=== PATIENT | male | born 1970 | race African-American/Black ===

== ENCOUNTER 2017-09-06 11:33 | Inpatient (IN) | payer OTHER, MEDICAID ==
[~2017-09-06] VITALS: Ht 188 cm; Wt 124.7 kg
[~2017-09-06 11:33] MED LIST: ACET-283 PO; AMLO10TA4; ATEN-175; CEPH250C2 PO; COCO1000 PO; FURO-151; HERBAL LAXATIVE; POTA10TA15 PO; PSYL1POW MC; SIMV10TA6 PO; VALS80TA2 PO; [UNRECOGNIZED DRUG - CODE] PO; [UNRECOGNIZED DRUG - OTHER]
[2017-09-06 12:55] LABS: BASOPHILS % 0.5 % (0.0-2.0); HEMATOCRIT. 46.1 % (42.0-52.0); HEMOGLOBIN. 15.4 g/dL (14.0-18.0); LYMPHOCYTES % 8.1 % (20.0-50.0); MEAN CORPUSCULAR HEMOGLOBIN 28.9 pg (28.0-32.0); MEAN CORPUSCULAR VOLUME 86.4 fL (80.0-94.0); MEAN PLATELET VOLUME 8.3 fl (7.4-10.4); MONOCYTES % 8.9 % (2.0-8.0); NEUTROPHILS % 80.5 % (40.0-76.0); PLATELET 162 x1000/uL (130-400); RED BLOOD CELL COUNT 5.34 mill/uL (4.7-6.1); RED CELL DISTRIBUTION WIDTH 14.5 % (11.6-14.6)
[2017-09-06 13:03] LABS: INR 2.4; PROTHROMBIN TIME 24.8 sec (9.4-11.6)
[2017-09-06 13:20] LABS: CARBON DIOXIDE 30 mEq/L (21-32); CHLORIDE 104 mEq/L (98-107); TROPONIN I < 0.02 ng/mL (0.00-0.04)
[2017-09-06] MEDS ORDERED: ACETAMINOPHEN WITH CODEINE 300/30MG TABLET PO ONE (14:45)
[2017-09-06] MEDS ORDERED: KETOROLAC 30MG/ML VIAL IV ONE (14:45)
[2017-09-06] MEDS ORDERED: ENOXAPARIN 100MG/ML SYR SUBCUT ONE ×2 (17:30→18:15)
[2017-09-06] MEDS ORDERED: OXYCODONE HCL/ACETAMINOPHEN 5/325MG TABLET PO ONE (17:45)
[2017-09-06] MEDS ORDERED: MAGNESIUM/ALUMINUM HYDROXIDE/SIMETHICONE 30ML UDC PO PRN (22:30)
[2017-09-06] MEDS ORDERED: DIPHENHYDRAMINE 50MG/ML VIAL IV PRN (22:30)
[2017-09-06] MEDS ORDERED: CLONIDINE 0.1MG TABLET PO PRN (22:30)
[2017-09-06] MEDS ORDERED: NA PHOS,M-B/NA PHOS,DI-BA ENEMA 118ML PR PRN (22:30)
[2017-09-06] MEDS ORDERED: ONDANSETRON HCL 4MG/2ML VIAL IV PRN (22:30)
[2017-09-06] MEDS ORDERED: GUAIFENESIN 200MG/10ML SUGAR FREE UDC PO PRN (22:30)
[2017-09-06] MEDS ORDERED: LORAZEPAM 2MG/ML CPJ IV PRN (22:30)
[2017-09-06] MEDS ORDERED: IPRATROPIUM/ALBUTEROL 0.5-3(2.5)MG/3ML NEB INH PRN (22:30)
[2017-09-06] MEDS ORDERED: ACETAMINOPHEN 325MG TABLET PO PRN (22:30)
[2017-09-06] MEDS ORDERED: LORAZEPAM 0.5MG TABLET PO PRN (23:15)
[2017-09-06 23:23] LABS: CHLORIDE 106 mEq/L (98-107)
[2017-09-06 23:29] LABS: CARBON DIOXIDE 29 mEq/L (21-32)
[2017-09-07] MEDS: HYDROCODONE/ACETAMINOPHEN 10/325MG TABLET PO PRN ×3 (00:25→10:02)
[2017-09-07 05:12] LABS: BASOPHILS % 0.5 % (0.0-2.0); EOSINOPHILS % 3.5 % (0.0-5.0); HEMATOCRIT. 43.5 % (42.0-52.0); HEMOGLOBIN. 14.4 g/dL (14.0-18.0); LYMPHOCYTES % 22.6 % (20.0-50.0); MEAN CORPUSCULAR HEMOGLOBIN 28.4 pg (28.0-32.0); MEAN CORPUSCULAR VOLUME 86.1 fL (80.0-94.0); MEAN PLATELET VOLUME 8.6 fl (7.4-10.4); MONOCYTES % 10.7 % (2.0-8.0); NEUTROPHILS % 62.7 % (40.0-76.0); PLATELET 171 x1000/uL (130-400); RED BLOOD CELL COUNT 5.05 mill/uL (4.7-6.1); RED CELL DISTRIBUTION WIDTH 14.3 % (11.6-14.6)
[2017-09-07 05:53] LABS: CHLORIDE 106 mEq/L (98-107)
[2017-09-07 06:56] LABS: CARBON DIOXIDE 24 mEq/L (21-32); HDL CHOLESTEROL 46 mg/dL (40-59); LDL CHOLESTEROL 49 mg/dL (5-100); T4 FREE 1.13 ng/dL (0.76-1.46)
[2017-09-07 12:00] VITALS: BP 144/88
[2017-09-07] MEDS ORDERED: DEXT 5%/0.45% NACL 1000ML 1,000 ML IV ONE (13:30)
[2017-09-07] MEDS ORDERED: LORAZEPAM 2MG/ML CPJ IV PRN (13:30)
[2017-09-07] MEDS ORDERED: THIAMINE HCL 100MG TABLET PO SCH (13:30)
[2017-09-07] MEDS: OXYCODONE HCL/ACETAMINOPHEN 5/325MG TABLET PO PRN ×3 (14:18→22:03)
[2017-09-07] MEDS ORDERED: IOHEXOL-350 100 ML BOTTLE ONE (15:38)
[2017-09-07 16:00] VITALS: BP 134/83
[2017-09-07 16:40] VITALS: BP 136/93
[2017-09-07] MEDS: WARFARIN SODIUM 4MG TABLET PO SCH (18:15)
[2017-09-07 20:00] VITALS: BP 132/94
[2017-09-07 22:17] LABS: CREATINE KINASE 163 IU/L (39-308); CREATINE KINASE MB FRACTION 0.7 ng/mL (0.5-3.6); TROPONIN I < 0.02 ng/mL (0.00-0.04)
[2017-09-08] VITALS: BP 117/76
[2017-09-08] MEDS: OXYCODONE HCL/ACETAMINOPHEN 5/325MG TABLET PO PRN ×5 (02:48→21:05)
[2017-09-08 04:00] VITALS: BP 134/71
[2017-09-08 06:34] LABS: INR 2.9; PROTHROMBIN TIME 30.6 sec (9.4-11.6)
[2017-09-08 07:32] VITALS: BP 132/82
[2017-09-08 08:29] LABS: CREATINE KINASE MB FRACTION 0.7 ng/mL (0.5-3.6)
[2017-09-08] MEDS: MULTIVITAMINS,THER W-MINERALS TABLET PO SCH (08:44)
[2017-09-08] MEDS: THIAMINE HCL 100MG TABLET PO SCH (08:45)
[2017-09-08] MEDS: FOLIC ACID 1MG TABLET PO SCH (08:45)
[2017-09-08 11:35] VITALS: BP 126/76
[2017-09-08 16:28] VITALS: BP 128/87
[2017-09-08] MEDS: WARFARIN SODIUM 4MG TABLET PO SCH (16:33)
[2017-09-08 20:00] VITALS: BP 138/81
[2017-09-09] VITALS (7 sets, daily range): BP systolic 132–164; BP diastolic 83–96
[2017-09-09] MEDS: OXYCODONE HCL/ACETAMINOPHEN 5/325MG TABLET PO PRN ×5 (01:02→20:29)
[2017-09-09] MEDS: DOCUSATE SODIUM 100MG CAPSULE PO PRN ×2 (05:27→20:29)
[2017-09-09 06:37] LABS: INR 2.5; PROTHROMBIN TIME 26.1 sec (9.4-11.6)
[2017-09-09] MEDS: THIAMINE HCL 100MG TABLET PO SCH (08:45)
[2017-09-09] MEDS: MULTIVITAMINS,THER W-MINERALS TABLET PO SCH (08:45)
[2017-09-09] MEDS: FOLIC ACID 1MG TABLET PO SCH (08:45)
[2017-09-09] MEDS ORDERED: HYDROCODONE/ACETAMINOPHEN 10/325MG TABLET PO PRN (09:15)
[2017-09-09] MEDS ORDERED: HYDROCODONE/ACETAMINOPHEN 5/325MG TABLET PO PRN (09:15)
[2017-09-09] MEDS: WARFARIN SODIUM 4MG TABLET PO SCH (17:55)
[2017-09-10 00:02] VITALS: BP 131/77
[2017-09-10] MEDS: OXYCODONE HCL/ACETAMINOPHEN 5/325MG TABLET PO PRN ×3 (00:10→09:24)
[2017-09-10 04:00] VITALS: BP 132/87
[2017-09-10 08:00] VITALS: BP 140/80
[2017-09-10] MEDS: THIAMINE HCL 100MG TABLET PO SCH (08:27)
[2017-09-10] MEDS: FOLIC ACID 1MG TABLET PO SCH (08:27)
[2017-09-10] MEDS: MULTIVITAMINS,THER W-MINERALS TABLET PO SCH (08:27)
[2017-09-10 12:00] VITALS: BP 124/70
== END 2017-09-10 14:50 | disposition home or self-care (01) | DRG 342 ==
LOC: ER 11:35 → 8WST 16:25 → ENRESERV 09-07 08:34
PROVIDERS: ADMIT Internal Medicine; ATTEND Internal Medicine
PROC: B5181ZA Fluoroscopy of Superior Vena Cava using Low Osmolar Contrast, Guidance (ICD-10-PCS; principal; 2017-09-07)
PROC: 02HV33Z Insertion of Infusion Device into Superior Vena Cava, Percutaneous Approach (ICD-10-PCS; 2017-09-07)
PROC: B548ZZA Ultrasonography of Superior Vena Cava, Guidance (ICD-10-PCS; 2017-09-07)
DX: S82.402A Unspecified fracture of shaft of left fibula, initial encounter for closed fracture (principal); G93.41 Metabolic encephalopathy; D68.59 Other primary thrombophilia; F20.9 Schizophrenia, unspecified; I69.354 Hemiplegia and hemiparesis following cerebral infarction affecting left non-dominant side; E86.0 Dehydration; S82.66XA Nondisplaced fracture of lateral malleolus of unspecified fibula, initial encounter for closed fracture; W18.30XA Fall on same level, unspecified, initial encounter; R55 Syncope and collapse; K21.9 Gastro-esophageal reflux disease without esophagitis; D17.9 Benign lipomatous neoplasm, unspecified; F10.10 Alcohol abuse, uncomplicated; I10 Essential (primary) hypertension; E78.5 Hyperlipidemia, unspecified; Y93.01 Activity, walking, marching and hiking; Z79.899 Other long term (current) drug therapy; Z83.2 Family history of diseases of the blood and blood-forming organs and certain disorders involving the immune mechanism; Y93.89 Activity, other specified; Y92.89 Other specified places as the place of occurrence of the external cause; Y99.8 Other external cause status; Z79.01 Long term (current) use of anticoagulants; Z88.5 Allergy status to narcotic agent; Z88.8 Allergy status to other drugs, medicaments and biological substances; Z79.1 Long term (current) use of non-steroidal anti-inflammatories (NSAID); Z86.718 Personal history of other venous thrombosis and embolism; Z86.711 Personal history of pulmonary embolism
CPT/HCPCS: 36415; 36569; 71045; 71275; 73610; 76937; 77001; 80048; 80053; 80061; 82550; 82553; 83036; 83880; 84439; 84443; 84484; 85025; 85379; 85610; 93005; 93306; 93970; 99285; C1725; J1650; J1885; Q9967

== ENCOUNTER 2018-03-01 17:15 | Emergency (ER) | payer OTHER ==
[~2018-03-01] VITALS: Ht 190.5 cm; Wt 134.6 kg
[~2018-03-01 17:15] MED LIST changes: -CEPH250C2 PO; -COCO1000 PO; -FURO-151; +FURO-151 PO; +OLAN5TAB6 MT
[2018-03-01] MEDS ORDERED: HYDROCODONE/ACETAMINOPHEN 5/325MG TABLET PO ONE (19:30)
[2018-03-01 22:30] VITALS: BP 121/66
== END 2018-03-01 22:50 | disposition home or self-care (01) ==
LOC: ER 17:15
DX: M25.551 Pain in right hip (principal); E78.00 Pure hypercholesterolemia, unspecified; I10 Essential (primary) hypertension; Z91.81 History of falling; Z86.73 Personal history of transient ischemic attack (TIA), and cerebral infarction without residual deficits; Z86.718 Personal history of other venous thrombosis and embolism; Z79.01 Long term (current) use of anticoagulants; Z88.5 Allergy status to narcotic agent
CPT/HCPCS: 73502; 73552; 99284

== ENCOUNTER 2018-06-05 08:57 | Emergency (ER) | payer OTHER ==
[~2018-06-05] VITALS: Ht 188 cm; Wt 132.0 kg
[2018-06-05 09:02] VITALS: BP 128/87
[2018-06-05] MEDS ORDERED: IBUPROFEN 600MG TABLET PO ONE (10:00)
[2018-06-05] MEDS ORDERED: HYDROCODONE/ACETAMINOPHEN 5/325MG TABLET PO ONE (11:30)
== END 2018-06-05 12:07 | disposition home or self-care (01) ==
LOC: ER 11:04
DX: M79.604 Pain in right leg (principal); M25.551 Pain in right hip; G89.29 Other chronic pain; M54.5 Low back pain; R03.0 Elevated blood-pressure reading, without diagnosis of hypertension; Z88.5 Allergy status to narcotic agent; Z88.8 Allergy status to other drugs, medicaments and biological substances
CPT/HCPCS: 99283

== ENCOUNTER 2018-07-15 09:28 | Emergency (ER) | payer OTHER ==
[~2018-07-15] VITALS: Ht 188 cm; Wt 132.0 kg
[2018-07-15] MEDS ORDERED: NAPROXEN 250MG TABLET PO STA (10:04)
[2018-07-15 10:25] VITALS: BP 136/96
== END 2018-07-15 10:30 | disposition home or self-care (01) ==
LOC: ER 09:28
DX: M54.9 Dorsalgia, unspecified (principal); G89.29 Other chronic pain; E78.00 Pure hypercholesterolemia, unspecified; I10 Essential (primary) hypertension; F12.10 Cannabis abuse, uncomplicated; Z86.718 Personal history of other venous thrombosis and embolism; Z86.73 Personal history of transient ischemic attack (TIA), and cerebral infarction without residual deficits; Z86.711 Personal history of pulmonary embolism; Z79.899 Other long term (current) drug therapy; Z88.8 Allergy status to other drugs, medicaments and biological substances
CPT/HCPCS: 99283

== ENCOUNTER 2019-03-23 21:30 | Emergency (ER) | payer MEDICAID, OTHER ==
[~2019-03-23] VITALS: Ht 185.4 cm; Wt 123.0 kg
[2019-03-24 01:04] VITALS: BP 146/88
== END 2019-03-24 01:05 | disposition home or self-care (01) ==
LOC: ER 21:30
DX: M54.40 Lumbago with sciatica, unspecified side (principal); G89.29 Other chronic pain; E78.00 Pure hypercholesterolemia, unspecified; I10 Essential (primary) hypertension; F12.10 Cannabis abuse, uncomplicated; Z86.718 Personal history of other venous thrombosis and embolism; Z76.0 Encounter for issue of repeat prescription; Z86.73 Personal history of transient ischemic attack (TIA), and cerebral infarction without residual deficits; Z86.711 Personal history of pulmonary embolism; Z98.890 Other specified postprocedural states; Z88.5 Allergy status to narcotic agent; Z88.8 Allergy status to other drugs, medicaments and biological substances
CPT/HCPCS: 99283

== ENCOUNTER 2019-03-24 18:27 | Emergency (ER) | payer MEDICAID ==
[~2019-03-24] VITALS: Ht 188 cm; Wt 123.0 kg
[2019-03-24 19:52] LABS: BASOPHILS % 0.6 % (0.0-2.0); EOSINOPHILS % 6.6 % (0.0-5.0); HEMOGLOBIN. 14.9 g/dL (14.0-18.0); LYMPHOCYTES % 22.7 % (20.0-50.0); MEAN CORPUSCULAR HEMOGLOBIN 30.3 pg (28.0-32.0); MEAN CORPUSCULAR VOLUME 91.6 fL (80.0-94.0); MEAN PLATELET VOLUME 9.3 fl (7.4-10.4); MONOCYTES % 10.8 % (2.0-8.0); NEUTROPHILS % 59.3 % (40.0-76.0); PLATELET 123 x1000/uL (130-400); RED BLOOD CELL COUNT 4.91 mill/uL (4.7-6.1)
[2019-03-24 19:57] LABS: CHLORIDE 108 mEq/L (98-107)
[2019-03-24 22:15] VITALS: BP 154/99
== END 2019-03-24 22:27 | disposition home or self-care (01) ==
LOC: ER 18:27
DX: R60.9 Edema, unspecified (principal); M79.89 Other specified soft tissue disorders; I10 Essential (primary) hypertension; E78.00 Pure hypercholesterolemia, unspecified; F12.10 Cannabis abuse, uncomplicated; Z86.718 Personal history of other venous thrombosis and embolism; Z88.5 Allergy status to narcotic agent; Z88.8 Allergy status to other drugs, medicaments and biological substances; Z86.73 Personal history of transient ischemic attack (TIA), and cerebral infarction without residual deficits; Z86.711 Personal history of pulmonary embolism; Z98.890 Other specified postprocedural states
CPT/HCPCS: 36415; 71045; 80053; 83880; 84484; 85025; 93005; 93970; 99284; Z7610

== ENCOUNTER 2019-04-09 19:08 | Emergency (ER) | payer MEDICAID ==
[~2019-04-09] VITALS: Ht 188 cm; Wt 133.2 kg
[2019-04-09 21:28] VITALS: BP 122/82
== END 2019-04-09 21:30 | disposition home or self-care (01) ==
LOC: ER 19:38
DX: S80.862A Insect bite (nonvenomous), left lower leg, initial encounter (principal); L03.116 Cellulitis of left lower limb; W57.XXXA Bitten or stung by nonvenomous insect and other nonvenomous arthropods, initial encounter; Y93.89 Activity, other specified; Y92.89 Other specified places as the place of occurrence of the external cause; Z86.718 Personal history of other venous thrombosis and embolism; Z79.01 Long term (current) use of anticoagulants; Z86.73 Personal history of transient ischemic attack (TIA), and cerebral infarction without residual deficits; I10 Essential (primary) hypertension; F12.90 Cannabis use, unspecified, uncomplicated
CPT/HCPCS: 99283

== ENCOUNTER 2019-06-08 02:55 | Emergency (ER) | payer MEDICAID ==
[~2019-06-08] VITALS: Ht 188 cm; Wt 133.5 kg
[2019-06-08] MEDS ORDERED: DEXAMETHASONE 10 MG/ML VIAL IM ONE (03:30)
[2019-06-08 04:13] VITALS: BP 130/86
== END 2019-06-08 04:17 | disposition home or self-care (01) ==
LOC: ER 02:55
DX: J06.9 Acute upper respiratory infection, unspecified (principal)
CPT/HCPCS: 96372; 99283; J1100

== ENCOUNTER 2019-07-25 13:29 | Emergency (ER) | payer MEDICAID ==
[~2019-07-25] VITALS: Ht 188 cm; Wt 127.0 kg
[2019-07-25] MEDS ORDERED: TETANUS, DIPHTHERIA, PERTUSSIS VAC/PF 0.5ML (>7YR OLD) IM ONE (19:30)
[2019-07-25] MEDS ORDERED: BACITRACIN ZINC OINT UDPKT TOP ONE (19:30)
[2019-07-25 20:00] VITALS: BP 142/73
== END 2019-07-25 20:01 | disposition home or self-care (01) ==
LOC: ER 13:29
DX: Z48.00 Encounter for change or removal of nonsurgical wound dressing (principal); Z23 Encounter for immunization; I10 Essential (primary) hypertension; E11.9 Type 2 diabetes mellitus without complications; Z79.899 Other long term (current) drug therapy
CPT/HCPCS: 90471; 90715; 99283

== ENCOUNTER 2020-06-02 00:07 | Emergency (ER) | payer OTHER ==
[~2020-06-02] VITALS: Ht 188 cm; Wt 122.3 kg
[~2020-06-02 00:07] MED LIST changes: -SIMV10TA6 PO; +SIMV10TA97 PO
[2020-06-02 00:10] VITALS: BP 129/91
[2020-06-02 01:29] LABS: BASOPHILS % 0.6 % (0.0-2.0); EOSINOPHILS % 3.3 % (0.0-5.0); HEMATOCRIT. 44.2 % (42.0-52.0); HEMOGLOBIN. 14.7 g/dL (14.0-18.0); LYMPHOCYTES % 33.8 % (20.0-50.0); MEAN CORPUSCULAR HEMOGLOBIN 30.1 pg (28.0-32.0); MEAN CORPUSCULAR VOLUME 90.4 fL (80.0-94.0); MEAN PLATELET VOLUME 8.2 fl (7.4-10.4); MONOCYTES % 11.3 % (2.0-8.0); PLATELET 174 x1000/uL (130-400); RED CELL DISTRIBUTION WIDTH 13.2 % (11.6-14.6)
[2020-06-02 01:35] LABS: CHLORIDE 108 mEq/L (98-107)
[2020-06-02] MEDS ORDERED: OXYMETAZOLINE HCL NASAL SPRAY 15ML BOTHNSTRLS NR (02:00)
== END 2020-06-02 02:25 | disposition home or self-care (01) ==
LOC: ER 00:07
DX: R04.0 Epistaxis (principal); E78.00 Pure hypercholesterolemia, unspecified; I10 Essential (primary) hypertension; F20.9 Schizophrenia, unspecified; F12.10 Cannabis abuse, uncomplicated; Z98.890 Other specified postprocedural states; Z79.899 Other long term (current) drug therapy
CPT/HCPCS: 36415; 80053; 85025; 99283

== ENCOUNTER 2024-10-28 14:33 | Emergency (ER) | payer OTHER ==
[~2024-10-28] VITALS: Ht 180.3 cm; Wt 100.0 kg
[2024-10-28 14:49] VITALS: O2SAT 100
[2024-10-28] MEDS ORDERED: DOXY100C74 MT (16:24)
[2024-10-28] MEDS ORDERED: MUPI15CR11 TP (16:24)
[2024-10-28] MEDS: TETANUS, DIPHTHERIA, PERTUSSIS VAC/PF 0.5ML (>10YR OLD) IM ONE (16:33)
[2024-10-28] MEDS: LIDOCAINE HCL/PF 1% 10 MG/ML 5ML VIAL INFIL NR (16:34)
[2024-10-28] MEDS: CEFTRIAXONE SODIUM 1G VIAL IM NR (16:34)
[2024-10-28] MEDS: BACITRACIN ZINC OINT UDPKT TOP NR (16:34)
[2024-10-28 17:08] VITALS: BP 148/90; PULSE 78; RESP 17; TEMP 36.8; O2SAT 100
== END 2024-10-28 17:09 | disposition home or self-care (01) ==
LOC: ER 14:33
DX: S80.12XA Contusion of left lower leg, initial encounter (principal); L03.116 Cellulitis of left lower limb; L97.929 Non-pressure chronic ulcer of unspecified part of left lower leg with unspecified severity; I11.0 Hypertensive heart disease with heart failure; F20.9 Schizophrenia, unspecified; E78.00 Pure hypercholesterolemia, unspecified; I50.9 Heart failure, unspecified; Z86.718 Personal history of other venous thrombosis and embolism; Z79.899 Other long term (current) drug therapy; W22.8XXA Striking against or struck by other objects, initial encounter; Y93.89 Activity, other specified; Y92.89 Other specified places as the place of occurrence of the external cause; Y99.8 Other external cause status
CPT/HCPCS: 99284; 73590; 90715; 90471; 96372; J0696; J2003

== ENCOUNTER 2024-12-25 13:49 | Emergency (ER) | payer MEDICAID, OTHER ==
[~2024-12-25] VITALS: Ht 182.9 cm; Wt 100.0 kg
[~2024-12-25 13:49] MED LIST changes: +AMLO-905; -AMLO10TA4; +DOXY-461 MT; +MUPI15CR11 TP
[2024-12-25 13:54] VITALS: BP 144/99; PULSE 86; RESP 16; TEMP 37.2; O2SAT 99
[2024-12-25] MEDS: ACETAMINOPHEN 325MG TABLET PO STA (14:20)
[2024-12-25] MEDS ORDERED: CYCL5TAB3 PO (14:46)
[2024-12-25] MEDS ORDERED: ACET-2708 PO (14:46)
== END 2024-12-25 15:18 | disposition home or self-care (01) ==
LOC: ER 13:49
DX: S16.1XXA Strain of muscle, fascia and tendon at neck level, initial encounter (principal); M25.511 Pain in right shoulder; I10 Essential (primary) hypertension; F12.90 Cannabis use, unspecified, uncomplicated; F20.9 Schizophrenia, unspecified; Z79.899 Other long term (current) drug therapy; Z86.73 Personal history of transient ischemic attack (TIA), and cerebral infarction without residual deficits; Z98.890 Other specified postprocedural states; V43.52XA Car driver injured in collision with other type car in traffic accident, initial encounter; Y93.89 Activity, other specified; Y92.89 Other specified places as the place of occurrence of the external cause; Y99.8 Other external cause status
CPT/HCPCS: 73030; 99283